=== PATIENT | female | born 1985 | race Caucasian/White ===

== ENCOUNTER 2018-07-19 19:16 | Observation (INO) | payer OTHER ==
[~2018-07-19] VITALS: Ht 153 cm; Wt 64.4 kg
[2018-07-19 21:39] VITALS: BP 129/78
[2018-07-19] MEDS ORDERED: PNV11TAB PO (23:37)
[2018-07-21] MEDS ORDERED: IBUP-2071 PO (14:00)
[2018-07-21] MEDS ORDERED: DSS100 PO (14:01)
== END 2018-07-20 00:05 | disposition home or self-care (01) ==
LOC: 4S 19:16
PROVIDERS: ADMIT Obstetrics & Gynecology; ATTEND Obstetrics & Gynecology
DX: O62.9 Abnormality of forces of labor, unspecified (principal); Z3A.39 39 weeks gestation of pregnancy

== ENCOUNTER 2018-07-20 08:00 | Inpatient (IN) | payer OTHER ==
[~2018-07-20] VITALS: Ht 152.4 cm; Wt 64.4 kg
[~2018-07-20 08:00] MED LIST: PNV11TAB PO
[2018-07-20] MEDS ORDERED: RINGERS SOLUTION,LACTATED 1,000 ML IV SCH (08:09)
[2018-07-20] MEDS ORDERED: RINGERS SOLUTION,LACTATED 1,000 ML IV PRN (08:09)
[2018-07-20] MEDS ORDERED: OXYTOCIN 30 UNITS/LACT RINGERS 500 ML IV ONE (08:09)
[2018-07-20] MEDS ORDERED: OXYGEN THERAPY IH SCH (08:15)
[2018-07-20] MEDS ORDERED: CITRIC ACID/SODIUM CITRATE 30 ML SOLUTION UDCUP PO PRN (08:15)
[2018-07-20] MEDS ORDERED: METOCLOPRAMIDE HCL 5 MG/ML 2 ML VIAL IVP PRN (08:15)
[2018-07-20] MEDS ORDERED: LIDOCAINE/PF 1% 30 ML VIAL INJ PRN (08:15)
[2018-07-20] MEDS ORDERED: METHYLERGONOVINE MALEATE 0.2 MG/ML VIAL IM PRN (08:15)
[2018-07-20] MEDS ORDERED: LIDOCAINE/PF 2% 5 ML VIAL ONE (08:27)
[2018-07-20] MEDS ORDERED: ROPIVACAINE HCL/PF 0.2% 100 ML ED ONE (08:27)
[2018-07-20 08:57] VITALS: BP 108/64
[2018-07-20 09:00] LABS: BASOPHILS % (AUTO) 0.1 % (0.0-2.0); EOSINOPHILS % (AUTO) 0 % (1.0-6.0); HEMATOCRIT 39.4 % (36-46); HEMOGLOBIN 13.6 g/dL (12.0-16.0); LYMPHOCYTES # (AUTO) 0.8 K/uL (1.0-4.8); LYMPHOCYTES % (AUTO) 5.5 % (22.0-44.0); MEAN CORPUSCULAR HEMOGLOBIN 30.5 pg (26.0-34.0); MEAN CORPUSCULAR HGB CONC 34.4 G/dL (31.0-37.0); MEAN CORPUSCULAR VOLUME 89 fL (80-100); MONOCYTES # (AUTO) 0.4 K/uL (0.1-1.0); MONOCYTES % (AUTO) 2.7 % (2.0-9.0); NEUTROPHILS # (AUTO) 13.6 K/uL (1.8-7.7); PLATELET COUNT (AUTO)-OB 127 K/uL (150-450); RED BLOOD CELL COUNT(AUTO) 4.46 MIL/uL (4.00-5.20); RED CELL DISTRIBUTION WIDTH 13.4 % (11.5-14.5)
[2018-07-20] MEDS ORDERED: ROPIVACAINE HCL/PF 0.2% 100 ML ED PRN (09:00)
[2018-07-20] MEDS ORDERED: NALBUPHINE HCL 10 MG/ML VIAL IVP PRN (09:00)
[2018-07-20] MEDS ORDERED: ONDANSETRON HCL 4 MG/2 ML VIAL IVP PRN (09:00)
[2018-07-20] MEDS ORDERED: DiphenhydrAMINE HCL 50 MG/ML VIAL IVP PRN (09:00)
[2018-07-20 09:03] LABS: NEUTROPHILS % (AUTO) 91.7 % (40.0-70.0)
[2018-07-20] MEDS ORDERED: AMMONIA 1 EA AMP IH ONE (14:12)
[2018-07-20] MEDS ORDERED: RINGERS SOLUTION,LACTATED 1,000 ML IV ONE (14:59)
[2018-07-20] MEDS ORDERED: OxyCODONE HCL/ACETAMINOPHEN 5-325 MG TABLET PO PRN ×2 (15:00)
[2018-07-20] MEDS ORDERED: BENZOCAINE 20%/MENTHOL 56 GM SPRAY CANISTER TP PRN (15:00)
[2018-07-20] MEDS ORDERED: MEASLES/MUMPS/RUBELLA VACCINE, LIVE 0.5 ML/VIAL SQ ONE (15:00)
[2018-07-20] MEDS ORDERED: LANOLIN 7 GM OINTMENT TP PRN (15:00)
[2018-07-20] MEDS ORDERED: GLYCERIN/WITCH HAZEL LEAF 40 PADS JAR TP PRN (15:00)
[2018-07-20] MEDS ORDERED: MAGNESIUM HYDROXIDE SUSPENSION 30 ML UDCUP PO SCH (21:00)
[2018-07-20] MEDS: IBUPROFEN 600 MG TABLET PO PRN (21:51)
[2018-07-21] MEDS: IBUPROFEN 600 MG TABLET PO PRN (10:00)
[2018-07-21] MEDS ORDERED: IBUP-2071 PO (14:00)
[2018-07-21] MEDS ORDERED: DSS100 PO (14:01)
== END 2018-07-21 16:05 | disposition home or self-care (01) | DRG 807 ==
LOC: OBSVTOIN 08:00 → 4S 08:00
PROVIDERS: ADMIT Obstetrics & Gynecology; ATTEND Obstetrics & Gynecology
PROC: 10E0XZZ Delivery of Products of Conception, External Approach (ICD-10-PCS; principal; 2018-07-20)
PROC: 0HQ9XZZ Repair Perineum Skin, External Approach (ICD-10-PCS; 2018-07-20)
PROC: 3E0R3BZ Introduction of Anesthetic Agent into Spinal Canal, Percutaneous Approach (ICD-10-PCS; 2018-07-20)
PROC: 00HU33Z Insertion of Infusion Device into Spinal Canal, Percutaneous Approach (ICD-10-PCS; 2018-07-20)
DX: O77.0 Labor and delivery complicated by meconium in amniotic fluid (principal); Z37.0 Single live birth; O70.0 First degree perineal laceration during delivery; Z3A.39 39 weeks gestation of pregnancy
CPT/HCPCS: 86850; 86900; 86901; J2590; J2795; J3490; J7120